=== PATIENT | male | born 1950 | race Caucasian/White ===

== ENCOUNTER 2020-10-11 10:00 | Outpatient (CLI) | payer OTHER, SELFPAY ==
[~2020-10-11] VITALS: Ht 170.2 cm; Wt 122.9 kg
[2020-10-12] MEDS ORDERED: METF-834 PO (11:07)
[2020-10-12] MEDS ORDERED: OXYB10TA4 PO (11:07)
[2020-10-12] MEDS ORDERED: VITD2000 PO (11:07)
[2020-10-12] MEDS ORDERED: FAMO20TA8 PO (11:07)
[2020-10-12] MEDS ORDERED: ATOR10TA68 PO (11:07)
[2020-10-12] MEDS ORDERED: CYAN100010 PO (11:07)
[2020-10-12] MEDS ORDERED: OMEG-133 PO (11:07)
[2020-10-12] MEDS ORDERED: OMEP40CA13 PO (11:07)
[2020-10-12] MEDS ORDERED: LATA7.5D OP (11:07)
[2020-10-12] MEDS ORDERED: FINA5TAB3 PO (11:07)
[2020-10-12] MEDS ORDERED: TAMS-11 PO (11:07)
[2020-10-12] MEDS ORDERED: ASA81 PO (11:07)
[2020-10-12] MEDS ORDERED: RESEYE OP (11:55)
[2020-10-12] MEDS ORDERED: TIMO5DRO15 EACH EYE (11:55)
[2020-10-12] MEDS ORDERED: BRI.2% EACH EYE (11:55)
[2020-10-12] MEDS ORDERED: TRIA1CAP6 PO (11:56)
[2020-10-15 06:45] VITALS: BP_SYST 128
[2020-10-15] MEDS ORDERED: CEFAZOLIN 1 GM IVPB PREMIX 50 ML IV ONE (07:00)
[2020-10-15] MEDS ORDERED: POLYMYXIN 500,000/BACIT.10,000 UNITS in NS IRR 1 L IR ONE (07:15)
[2020-10-15] MEDS ORDERED: NYSTATIN 15 GM TOPICAL POWDER TP SCH (09:00)
== END 2020-10-11 11:00 | disposition home or self-care (01) ==
LOC: SLB 10:00 → SDS 10-15 05:49 → EDSTATUS 10-15 09:55
PROVIDERS: ATTEND Colon & Rectal Surgery
DX: K42.0 Umbilical hernia with obstruction, without gangrene (principal); I10 Essential (primary) hypertension; E11.51 Type 2 diabetes mellitus with diabetic peripheral angiopathy without gangrene; E66.01 Morbid (severe) obesity due to excess calories; E11.40 Type 2 diabetes mellitus with diabetic neuropathy, unspecified; N40.0 Benign prostatic hyperplasia without lower urinary tract symptoms; Z20.822 Contact with and (suspected) exposure to COVID-19; Z53.8 Procedure and treatment not carried out for other reasons
CPT/HCPCS: 82962; 87081; J0690; U0003

== ENCOUNTER 2020-11-19 09:55 | Day surgery (SDC) | payer OTHER, SELFPAY ==
[~2020-11-19] VITALS: Ht 170.2 cm; Wt 118.8 kg
[~2020-11-19 09:55] MED LIST: ASA81 PO; ATOR10TA68 PO; BRI.2% EACH EYE; CEFAZOLIN SOD 1 GM in D5W 50 ML IV ONE; CYAN100010 PO; FAMO20TA8 PO; FINA5TAB3 PO; LATA7.5D OP; METF-834 PO; OMEG-133 PO; OMEP40CA13 PO; OXYB10TA4 PO; RESEYE OP; TAMS-11 PO; TIMO5DRO15 EACH EYE; TRIA1CAP6 PO; VITD2000 PO
[2020-11-19] MEDS ORDERED: POLYMYXIN 500,000/BACIT.10,000 UNITS in NS IRR 1 L IR ONE (15:10)
[2020-11-19] MEDS ORDERED: SEVOFLURANE 15 MIN GAS INH ONE (15:25)
[2020-11-19] MEDS ORDERED: PROPOFOL 200MG/ 20ML VIAL (DIPRIVAN) IV ONE (15:25)
[2020-11-19] MEDS ORDERED: BUPIVACAINE /PF 0.25% 30 ML VIAL INJ ONE (15:25)
[2020-11-19] MEDS ORDERED: ROCURONIUM BROMIDE 10 MG/ML (ZEMURON) IV ONE (15:25)
[2020-11-19] MEDS ORDERED: SUGAMMADEX SODIUM 200 MG/2 ML VIAL IV ONE (15:25)
[2020-11-19] MEDS ORDERED: LR 1,000 ML IV.SOLN IV ONE (15:25)
[2020-11-19] MEDS ORDERED: GLYCOPYRROLATE 0.2 MG/ML VIAL IJ ONE (15:25)
[2020-11-19] MEDS ORDERED: fentaNYL CITRATE/PF 100 MCG/2 ML AMP IVP ONE (15:25)
[2020-11-19] MEDS ORDERED: SUCCINYLCHOLINE CHLORIDE 20 MG/ML(QUELICIN) IVP ONE (15:25)
[2020-11-19] MEDS ORDERED: CEFAZOLIN 1 GM IVPB PREMIX 50 ML IV ONE (15:25)
[2020-11-19 16:30] VITALS: BP_SYST 156
[2020-11-19] MEDS ORDERED: HYDROcodone/ACETAMIN 5-325 MG TAB (NORCO/ VICODIN) PO PRN ×2 (17:00)
[2020-11-19] MEDS ORDERED: ONDANSETRON HCL 4 MG/2 ML VIAL IVP PRN ×2 (17:00→17:45)
[2020-11-19] MEDS ORDERED: ACETAMINOPHEN 325 MG TABLET PO PRN (17:00)
[2020-11-19] MEDS ORDERED: HYDROmorphone 1 MG/ML INJ. CARTRIDGE IVP PRN (17:00)
[2020-11-19] MEDS ORDERED: fentaNYL CITRATE/PF 100 MCG/2 ML AMP IVP PRN (17:45)
[2020-11-19] MEDS ORDERED: LR 1,000 ML IV ONE (17:45)
[2020-11-19 20:00] VITALS: BP_SYST 150
[2020-11-19] MEDS: D5/0.45 NS 1,000 ML IV SCH (22:33)
[2020-11-19] MEDS: FAMOTIDINE PF 20 MG/2 ML VIAL IVP SCH (22:34)
[2020-11-19] MEDS: CEFAZOLIN 1 GM IVPB PREMIX 50 ML IV SCH (22:34)
[2020-11-19 22:46] VITALS: BP_SYST 150
[2020-11-20] VITALS: BP_SYST 131
[2020-11-20] MEDS: D5/0.45 NS 1,000 ML IV SCH (03:00)
[2020-11-20] MEDS: CEFAZOLIN 1 GM IVPB PREMIX 50 ML IV SCH (04:10)
[2020-11-20 07:08] LABS: CALCIUM 8.8 mg/dL (8.4-11.0); CREATININE 0.84 mg/dL (0.55-1.30); POTASSIUM 3.7 mmol/L (3.5-5.1); TOTAL BILIRUBIN 0.5 mg/dL (0.0-1.0)
[2020-11-20 08:00] VITALS: BP_SYST 156
[2020-11-20 08:11] LABS: BASOPHILS % (AUTO) 0.5 % (0.0-2.0); EOSINOPHILS # (AUTO) 0.2 K/uL (0.0-0.4); EOSINOPHILS % (AUTO) 2.2 % (0.0-4.0); HEMATOCRIT 43.4 % (36-54); HEMOGLOBIN 14.8 g/dL (14.0-18.0); LYMPHOCYTES # (AUTO) 1.8 K/uL (1.0-5.5); LYMPHOCYTES % (AUTO) 24.6 % (20.5-51.5); MEAN CORPUSCULAR HEMOGLOBIN 33 pg (27-31); MEAN CORPUSCULAR HGB CONC 34 % (32-36); MEAN CORPUSCULAR VOLUME 97 fL (79.0-98.0); NEUTROPHILS # (AUTO) 4.4 K/uL (1.8-7.7); NEUTROPHILS % (AUTO) 59.7 % (40.0-70.0); PLATELET COUNT (AUTO) 123 K/uL (130-430); RED BLOOD CELL COUNT(AUTO) 4.48 MIL/uL (4.2-6.2); RED CELL DISTRIBUTION WIDTH 13.5 % (9.0-15.0); WHITE BLOOD COUNT (AUTO) 7.4 K/uL (4.8-10.8)
[2020-11-20] MEDS: FAMOTIDINE PF 20 MG/2 ML VIAL IVP SCH (08:31)
[2020-11-20] MEDS ORDERED: ENOXAPARIN SODIUM 30 MG/0.3 ML SYRINGE SUBCUT SCH (09:00)
[2020-11-20 09:58] VITALS: BP_SYST 156
[2020-11-20 12:13] VITALS: BP_SYST 159
== END 2020-11-20 14:15 | disposition home or self-care (01) ==
LOC: SDS 09:55 → SMU 09:56 → SDS 21:00 → SMU 21:00 → UNDOADMOB 21:05 → SMU 21:05 → SDS 11-20 14:15
PROVIDERS: ATTEND Colon & Rectal Surgery
DX: K42.0 Umbilical hernia with obstruction, without gangrene (principal); K21.9 Gastro-esophageal reflux disease without esophagitis; E11.9 Type 2 diabetes mellitus without complications; E66.01 Morbid (severe) obesity due to excess calories; Z79.899 Other long term (current) drug therapy; Z68.41 Body mass index [BMI] 40.0-44.9, adult; Z20.822 Contact with and (suspected) exposure to COVID-19
CPT/HCPCS: 36415; 49585; 80053; 82962; 85025; 87081; 88302; C1781; C9399; J0330; J0690 ×2; J1650; J2704; J3010; J3490 ×4; J7060; J7120; U0003